=== PATIENT | female | born 1955 | race Caucasian/White ===

== ENCOUNTER → 2017-01-28 | Outpatient (CLI) | payer OTHER | LOC: MC.RAD 12:57 | DX: Z12.31 Encounter for screening mammogram for malignant neoplasm of breast (principal) ==

== ENCOUNTER → 2017-02-04 | Outpatient (CLI) | payer OTHER | LOC: MC.RAD 07:30 | DX: N63 Unspecified lump in breast (principal) ==

== ENCOUNTER → 2018-03-12 | Outpatient (CLI) | payer BC | LOC: MC.RAD 10:40 | DX: Z12.31 Encounter for screening mammogram for malignant neoplasm of breast (principal) ==

== ENCOUNTER → 2019-08-26 | Outpatient (CLI) | payer BC | LOC: MC.RAD 14:19 | DX: Z12.31 Encounter for screening mammogram for malignant neoplasm of breast (principal) ==

== ENCOUNTER → 2020-10-23 | Outpatient (CLI) | payer BC | LOC: MC.RAD 07:45 | DX: Z12.31 Encounter for screening mammogram for malignant neoplasm of breast (principal) ==

== ENCOUNTER 2022-02-13 09:05 | Emergency (ER) | payer BC ==
[~2022-02-13] VITALS: Ht 165.1 cm; Wt 93.2 kg
[2022-02-13 09:14] VITALS: TEMP 97.3
[2022-02-13 09:43] LABS: BASO # 0.1 K/mm3 (0.0-0.2); BASO % 0.6 % (0.0-2.0); EOS # 0.3 K/mm3 (0.0-0.7); EOS % 3.1 % (0.0-4.0); GRAN # 5.2 K/mm3 (1.4-6.5); HEMATOCRIT 41.9 % (37.0-47.0); HEMOGLOBIN 14.2 g/dl (12.5-16.0); LYMPH # 3.6 K/mm3 (1.2-3.4); LYMPH % 35.8 % (20.0-51.0); MEAN CELL VOLUME 94 fl (80.0-100.0); MEAN CORPUSCULAR HEMOGLOBIN 32 pg (27-31); MEAN CORPUSCULAR HGB CONC 34 g/dl (33.0-37.0); MEAN PLATELET VOLUME 9.5 fl (7.4-10.4); MONO # 0.9 K/mm3 (0.1-0.6); MONO % 9.1 % (1.7-9.3); PLATELET COUNT 352 K/mm3 (130-400); RED BLOOD COUNT 4.45 M/mm3 (4.10-5.30); REDCELL DISTRIBUTION WIDTH-CV 12.8 % (11.5-14.5)
[2022-02-13 10:06] LABS: CALCIUM 9.2 mg/dL (8.4-10.2); CREATININE, serum 0.63 mg/dL (0.57-1.11); MAGNESIUM 1.9 mg/dL (1.6-2.6); PHOSPHOROUS 3.1 mg/dL (2.3-4.7); POTASSIUM 3.8 mmol/L (3.5-4.5)
[2022-02-13] MEDS ORDERED: MULTAQ400 MG PO (12:24)
[2022-02-13] MEDS ORDERED: ELIQUIS 5MG PO (12:24)
[2022-02-13] MEDS ORDERED: CEPHALEXIN500 M1 PO (12:25)
[2022-02-13 13:45] VITALS: BP 117/70; PULSE 88
== END 2022-02-13 13:48 | disposition other institution (70) ==
LOC: COL.ER 09:05
PROVIDERS: Emergency Medicine
DX: I48.91 Unspecified atrial fibrillation (principal); I10 Essential (primary) hypertension; Z79.01 Long term (current) use of anticoagulants
CPT/HCPCS: C1764; J1644; J7030

== ENCOUNTER 2022-04-02 03:47 | Observation (INO) | payer BC ==
[~2022-04-02] VITALS: Ht 165.1 cm; Wt 94.7 kg
[~2022-04-02 03:47] MED LIST: CEPHALEXIN500 M1 PO; ELIQUIS 5MG PO; MULTAQ400 MG PO
[2022-04-02] MEDS ORDERED: HYZAAR 50-12.1 UDTAB PO (04:22)
[2022-04-02] MEDS ORDERED: SINGULAIR 110 MG/TAB PO (04:23)
[2022-04-02] MEDS ORDERED: SYNTHROID0.05 MG/TA PO (04:23)
[2022-04-02] MEDS ORDERED: RT ADVAIR 228 DISKUS IH ×2 (04:23→05:10)
[2022-04-02 04:37] LABS: BASO # 0.1 K/mm3 (0.0-0.2); BASO % 0.6 % (0.0-2.0); EOS # 0.2 K/mm3 (0.0-0.7); EOS % 2.3 % (0.0-4.0); GRAN # 4.5 K/mm3 (1.4-6.5); GRAN % 58.3 % (42.2-75.2); HEMATOCRIT 39.6 % (37.0-47.0); HEMOGLOBIN 13.4 g/dl (12.5-16.0); LYMPH # 2.4 K/mm3 (1.2-3.4); LYMPH % 31.1 % (20.0-51.0); MEAN CELL VOLUME 93 fl (80.0-100.0); MEAN CORPUSCULAR HEMOGLOBIN 32 pg (27-31); MEAN CORPUSCULAR HGB CONC 34 g/dl (33.0-37.0); MEAN PLATELET VOLUME 9.2 fl (7.4-10.4); MONO # 0.6 K/mm3 (0.1-0.6); MONO % 7.6 % (1.7-9.3); PLATELET COUNT 298 K/mm3 (130-400); RED BLOOD COUNT 4.26 M/mm3 (4.10-5.30); REDCELL DISTRIBUTION WIDTH-CV 13.2 % (11.5-14.5)
[2022-04-02] MEDS ORDERED: LIPITOR 10MG10 MG PO (04:38)
[2022-04-02 04:52] LABS: ALANINE AMINOTRANSFERASE 27 U/L (0-55); ALKALINE PHOSPHATASE 60 U/L (40-150); ANION GAP 12 mmol/L (7-16); AST,SGOT 19 U/L (5-34); BILIRUBIN,TOTAL 0.6 mg/dL (0.2-1.2); BLOOD UREA NITROGEN 9 mg/dL (10-20); CALCIUM 9.5 mg/dL (8.4-10.2); CARBON DIOXIDE 21 mmol/L (23-31); CHLORIDE 106 mmol/L (98-107); CREATININE, serum 0.71 mg/dL (0.57-1.11); GLUCOSE 109 mg/dL (70-99); POTASSIUM 3.6 mmol/L (3.5-4.5); SODIUM 139 mmol/L (136-145); TOTAL PROTEIN 6.8 gm/dL (6.2-8.1)
[2022-04-02 04:54] LABS: LIPASE 20 U/L (8-78)
[2022-04-02 05:16] LABS: TROPONIN-I < 0.010 ng/mL (0.00-0.033)
[2022-04-02 10:56] VITALS: BP 19/65; PULSE 57; TEMP 97.7
[2022-04-02 11:52] VITALS: BP 121/64; PULSE 57; TEMP 98
[2022-04-02 15:41] VITALS: BP 141/71; PULSE 65; TEMP 98.1
[2022-04-02 19:57] VITALS: BP 155/76; PULSE 59; TEMP 98.2
[2022-04-02 23:35] VITALS: BP 117/53; PULSE 62; TEMP 97.6
[2022-04-03 03:12] VITALS: BP 110/50; PULSE 59; TEMP 97.6
--- NOTE | 2022-04-03 05:38 | NUR ---
NPO since midnight, up ad ladi in room, INT to LFA patent/secure. reported mild back pain last evening, Tylenol given, no further complaints.
[2022-04-03 06:55] LABS: ALBUMIN 3.4 gm/dL (3.4-4.8); BILIRUBIN,TOTAL 0.7 mg/dL (0.2-1.2); CALCIUM 8.8 mg/dL (8.4-10.2); CREATININE, serum 0.67 mg/dL (0.57-1.11); POTASSIUM 3.6 mmol/L (3.5-4.5); TOTAL PROTEIN 5.8 gm/dL (6.2-8.1)
[2022-04-03 07:07] VITALS: BP 110/59; PULSE 56; TEMP 98.4
[2022-04-03 07:08] LABS: BASO % 0.7 % (0.0-2.0); EOS # 0.1 K/mm3 (0.0-0.7); EOS % 2.6 % (0.0-4.0); GRAN # 2.7 K/mm3 (1.4-6.5); HEMOGLOBIN 12.1 g/dl (12.5-16.0); LYMPH % 37.6 % (20.0-51.0); MEAN CELL VOLUME 94 fl (80.0-100.0); MEAN CORPUSCULAR HEMOGLOBIN 32 pg (27-31); MEAN CORPUSCULAR HGB CONC 34 g/dl (33.0-37.0); MEAN PLATELET VOLUME 9.5 fl (7.4-10.4); MONO # 0.5 K/mm3 (0.1-0.6); MONO % 8.9 % (1.7-9.3); PLATELET COUNT 278 K/mm3 (130-400); RED BLOOD COUNT 3.81 M/mm3 (4.10-5.30); REDCELL DISTRIBUTION WIDTH-CV 13.3 % (11.5-14.5)
[2022-04-03 07:09] LABS: HEMATOCRIT 35.8 % (37.0-47.0)
--- NOTE | 2022-04-03 10:09 | NUR ---
Shift assessment completed. Medications administered by SARAH Chase. VSS. Patient A&O. Patient c/o of 2/10 aching back pain, but denied the need for interventions at this time. Patient NPO for ronn later this shift. Patient denies any further pain, discomfort, SOA, or further needs at this time. Call light in reach.
--- NOTE | 2022-04-03 10:33 | NUR ---
Initial visit; Patient very friendly and thanked Pharmaceutical Development Technician for stopping in and offering God's blessings. Patient declined spiritual care.
[2022-04-03 11:04] VITALS: BP 136/75; PULSE 64; TEMP 98.3
--- NOTE | 2022-04-03 11:12 | NUR ---
Accountant Clerk met with patient to discuss discharge planning. Patient lives in [place] and sees Dr. Sneed for primary care. [facility]. Patient is employed at [employer] and is independent with ADLS. Patient does not use any DME. Patient reports her daughter, Janey (ph#[phone]) is her DPOA-HC. Patient plans to return home at time of discharge. Discharge Plan: Home
--- NOTE | 2022-04-03 16:30 | NUR ---
Patient down for Choley. Consent signed and on the chart. Fluids running as ordered. Kevin transporting in bed.
[2022-04-03 18:45] VITALS: BP 150/81; PULSE 52
--- NOTE | 2022-04-03 18:45 | NUR ---
Patient back from procedure. Patient attached to dynamap for post ops. VSS. Patient A&O. Oncoming nurse given report.
--- NOTE | 2022-04-03 18:45 | NUR ---
THE PATIENT IS BACK IN ROOM FROM PACU. THE PATIENT DENIES ANY PAIN, X4 LAP SITES ARE CLEAN, DRY AND INTACT. NO OTHER CONCERNS AT THIS TIME. PATIENT IS SITTING UP AND DINNER WILL BE HERE FOR HER SHORTLY.
[2022-04-03 19:00] VITALS: BP 154/67; PULSE 63
[2022-04-03 23:03] VITALS: BP 122/71; PULSE 69; TEMP 97.7
[2022-04-04 04:55] VITALS: BP 115/62; PULSE 73; TEMP 97.4
[2022-04-04 07:57] VITALS: BP 126/64; PULSE 75; TEMP 97.6
--- NOTE | 2022-04-04 10:00 | NUR ---
Follow-up visit; Patient thanked Clinical Scientist for looking in on her and offering God's blessings again today and wishing her well.
[2022-04-04] MEDS ORDERED: NORCO 325 MG-51 TAB PO (11:04)
--- NOTE | 2022-04-04 14:15 | NUR ---
Scheduled medications given. Shift assessment preformed. Patient given PRN pain medication for a headache rated a 4/10. Patient states that this has helped alleviate her pain. Surgical sites are dressed with bandaides that have remained clean, dry, and intact. Patient deemed fit for discharge. IV DC'd catheter intact, no signs of phlebitis. Discharge education/instructions given. All questions answered. Patient denies any further pain, discomfort, SOA, or further needs at this time. Patient escorted from building via wheelchair, escorted by [facility] staff. Son transporting patient home.
== END 2022-04-04 14:00 | disposition home or self-care (01) ==
LOC: COL.ER 03:47 → MEDICAL 09:09
PROVIDERS: Emergency Medicine; ADMIT Surgery
DX: K80.10 Calculus of gallbladder with chronic cholecystitis without obstruction (principal); K82.8 Other specified diseases of gallbladder
CPT/HCPCS: G0378; J0690; J1100; J1885; J1956; J2270; J2370; J2405; J2704; J2710; J2765; Q9967

== ENCOUNTER → 2022-10-24 | Outpatient (CLI) | payer BC ==
[~2022-10-24] MED LIST changes: +HYZAAR 50-12.1 UDTAB PO; +LIPITOR 10MG10 MG PO; +NORCO 325 MG-51 TAB PO; +RT ADVAIR 228 DISKUS IH; +SINGULAIR 110 MG/TAB PO; +SYNTHROID0.05 MG/TA PO
== END ==
LOC: MC.RAD 07:32
DX: Z12.31 Encounter for screening mammogram for malignant neoplasm of breast (principal)